=== PATIENT | female | born 1970 | race Caucasian/White ===

== ENCOUNTER → 2018-01-21 | Outpatient (CLI) | payer OTHER ==
[~2018-01-21] MED LIST: ADVAIR 250/501 DISK IH; ALBUTEROL SULF8.5 GM IH; ALLER-EASE180 MG PO; CELEXA10 MG PO; GUAIFENESIN600 M1 PO; INDOCIN25 MG PO; NAPROSYN500 MG PO; PREDNISONE20 MG PO; PRIMATENE MIST15 M1 IH; RITALIN10 MG PO; TAMIFLU75 MG PO; VENTOLIN HFA18 GM IH; ZYRTEC10 M2 PO
== END | disposition home or self-care (01) ==
LOC: RAD 09:20
DX: Z02.71 Encounter for disability determination (principal)
CPT/HCPCS: 73630